=== PATIENT | female | born 1990 | race Hispanic/Latino ===

== ENCOUNTER 2018-09-05 13:18 | Observation (INO) | payer MEDICAID ==
[2018-09-05] MEDS ORDERED: ONDANSETRON ODT 4 MG TAB ONE (13:29)
[2018-09-05 14:04] LABS: BASOPHILS % (AUTO) 0.3 % (0.0-5.0); EOSINOPHILS % (AUTO) 0.6 % (0.0-8.0); HEMATOCRIT 33.2 % (36-48); LYMPHOCYTES % (AUTO) 12.6 % (21.0-51.0); MEAN CORPUSCULAR HEMOGLOBIN 31.8 pg (27.0-33.0); MEAN CORPUSCULAR HGB CONC 35.1 g/dL (32.0-36.0); MEAN CORPUSCULAR VOLUME 90.7 fL (79-99); MONOCYTES % (AUTO) 8.3 % (3.0-13.0); NEUTROPHILS % (AUTO) 78.2 % (40.0-77.0); PLATELET COUNT (AUTO) 172 K/uL (130-400); RED BLOOD CELL COUNT(AUTO) 3.66 MIL/uL (4.00-5.50); RED CELL DISTRIBUTION WIDTH 13.1 % (11.0-15.5); WHITE BLOOD COUNT (AUTO) 9.9 K/uL (4.8-10.8)
[2018-09-05 14:13] LABS: CREATININE 0.6 mg/dL (0.5-1.5); POTASSIUM 3.5 mmol/L (3.5-5.1)
[2018-09-05 14:17] LABS: ALBUMIN 2.6 g/dL (3.5-5.0); BILIRUBIN,TOTAL 0.3 mg/dL (0.2-1.0); TOTAL PROTEIN, SERUM 6.6 g/dL (6.0-8.3)
[2018-09-05 15:47] LABS: APPEARANCE,URINE Clear (CLEAR); BILIRUBIN,URINE Negative (NEGATIVE); COLOR,URINE Yellow (YELLOW); GLUCOSE, URINE (UA) Negative (NEGATIVE); KETONES,URINE Negative (NEGATIVE); LEUKOCYTE ESTERASE ,URINE Small (NEGATIVE); NITRATE,URINE Negative (NEGATIVE); OCCULT BLOOD,URINE Negative (NEGATIVE); PROTEIN,URINE Negative (NEGATIVE); UROBILINOGEN,URINE 0.2 mg/dL (0.2-1.0)
[2018-09-05 15:54] LABS: AMPHET/METH SCREEN,URINE NEGATIVE (NEGATIVE); BARBITURATE SCREEN, URINE NEGATIVE (NEGATIVE); BENZODIAZEPINES SCREEN,URINE NEGATIVE (NEGATIVE); CANNABINOID SCREEN,URINE NEGATIVE (NEGATIVE); COCAINE SCREEN,URINE NEGATIVE (NEGATIVE); OPIATE SCREEN,URINE NEGATIVE (NEGATIVE); PHENCYCLIDINE SCREEN,URINE NEGATIVE (NEGATIVE)
[2018-09-05 15:59] LABS: BACTERIA,URINE Few /HPF (None Seen); RBC,URINE None Seen /HPF (0-1); WBC,URINE 0-1 /HPF (0-1)
[2018-09-05 16:00] LABS: TRANSITIONAL EPI CELLS,URINE Few /HPF (None Seen)
== END 2018-09-05 16:45 | disposition home or self-care (01) ==
LOC: EDH 13:18 → LDH 13:19
PROVIDERS: ADMIT Obstetrics & Gynecology; ATTEND Obstetrics & Gynecology
DX: O21.2 Late vomiting of pregnancy (principal); O26.892 Other specified pregnancy related conditions, second trimester; R10.13 Epigastric pain; Z3A.24 24 weeks gestation of pregnancy; R19.7 Diarrhea, unspecified; Z79.899 Other long term (current) drug therapy
CPT/HCPCS: 36415; 80053; 80305; 81001; 85025; 99284; G0378 ×3

== ENCOUNTER 2020-09-30 03:37 | Inpatient (IN) | payer MEDICAID, OTHER ==
[~2020-09-30] VITALS: Ht 160 cm; Wt 105.2 kg
[~2020-09-30 03:37] MED LIST: DOXYCYCLINE 100MG+NS 250ML 250 ML IV SCH
[2020-09-30] MEDS ORDERED: SODIUM CHLORIDE 0.9% 1000ML 1,000 ML IV ONE (04:13)
[2020-09-30 04:23] LABS: BASOPHILS % (AUTO) 0.1 % (0.0-5.0); HEMATOCRIT 39.3 % (36-48); LYMPHOCYTES % (AUTO) 6.9 % (21.0-51.0); MEAN CORPUSCULAR HEMOGLOBIN 30.1 pg (27.0-33.0); MEAN CORPUSCULAR HGB CONC 34.4 g/dL (32.0-36.0); MEAN CORPUSCULAR VOLUME 87.5 fL (79-99); MONOCYTES % (AUTO) 6.3 % (3.0-13.0); NEUTROPHILS % (AUTO) 85.5 % (40.0-77.0); PLATELET COUNT (AUTO) 207 K/uL (130-400); RED BLOOD CELL COUNT(AUTO) 4.49 MIL/uL (4.00-5.50); WHITE BLOOD COUNT (AUTO) 16.9 K/uL (4.8-10.8)
[2020-09-30 04:33] LABS: INR 1.02 (0.85-1.15); PROTHROMBIN TIME 10.9 SEC (9.6-11.6)
[2020-09-30 04:35] LABS: PARTIAL THROMBOPLASTIN TIME 24.5 SEC (26.3-35.5)
[2020-09-30] MEDS ORDERED: ACETAMINOPHEN ELIXIR 325 MG/10.15ML UDCUP ONE (04:35)
[2020-09-30 04:36] LABS: CREATININE 0.8 mg/dL (0.5-1.5); POTASSIUM 3.9 mmol/L (3.5-5.1)
[2020-09-30] MEDS ORDERED: CEFTRIAXONE SODIUM 1 GM ONE (04:36)
[2020-09-30] MEDS ORDERED: DEXAMETHASONE SOD PHOSPHATE 10MG/ML 1ML VIAL ONE (04:36)
[2020-09-30] MEDS ORDERED: AZITHROMYCIN 250 MG TABLET PO ONE (04:36)
[2020-09-30 04:41] LABS: ALBUMIN 2.8 g/dL (3.5-5.0); BILIRUBIN,TOTAL 0.4 mg/dL (0.2-1.0); CRP QUANTITATIVE 167.8 mg/L (0.00-9.0); TOTAL PROTEIN, SERUM 7.8 g/dL (6.0-8.3)
[2020-09-30] MEDS ORDERED: ONDANSETRON HCL 4 MG/2 ML VIAL ONE ×2 (04:48→15:17)
[2020-09-30 04:52] LABS: FERRITIN 424 ng/mL (15-150)
[2020-09-30] MEDS ORDERED: PHARMACY COMMUNICATION MISC SCH (05:30)
[2020-09-30] MEDS ORDERED: DOXYCYCLINE 100MG+NS 250ML IV SCH (05:30)
[2020-09-30] MEDS ORDERED: ERGOCALCIFEROL (VITAMIN D2) 50,000 UNIT CAPSULE PO ONE (05:30)
[2020-09-30] MEDS ORDERED: ONDANSETRON HCL 4 MG/2 ML VIAL IV PRN (05:30)
[2020-09-30] MEDS: DEXAMETHASONE SOD PHOSPHATE 4 MG/ML 1ML VIAL IVP SCH (05:30)
[2020-09-30] MEDS ORDERED: ACETAMINOPHEN 325 MG TAB PO PRN ×2 (05:30)
[2020-09-30] MEDS ORDERED: ERGOCALCIFEROL (VITAMIN D2) 50,000 UNIT CAPSULE ONE (05:51)
[2020-09-30] MEDS ORDERED: DOXYCYCLINE 100MG+NS 250ML 250 ML IV ONE ×2 (05:51→20:25)
[2020-09-30] MEDS: DOXYCYCLINE 100MG+NS 250ML IV SCH ×2 (06:00→18:00)
[2020-09-30] MEDS ORDERED: ACETYLCYSTEINE 600 MG CAPSULE ONE ×3 (08:57→20:25)
[2020-09-30] MEDS ORDERED: ASCORBIC ACID 500 MG TAB ONE (08:57)
[2020-09-30] MEDS ORDERED: ZINC SULFATE 220 CAPSULE ONE (08:57)
[2020-09-30] MEDS: ACETYLCYSTEINE 600 MG CAPSULE PO SCH ×2 (09:00→21:00)
[2020-09-30] MEDS: FAMOTIDINE/PF 20 MG/2 ML VIAL IV SCH ×2 (09:00→21:00)
[2020-09-30] MEDS: ZINC SULFATE 220 CAPSULE PO SCH (09:00)
[2020-09-30] MEDS: ASCORBIC ACID 500 MG TAB PO SCH (09:00)
[2020-09-30] MEDS ORDERED: GUAIFENESIN-DM 200/20 MG 10 ML ONE ×2 (15:17→21:38)
[2020-09-30] MEDS ORDERED: REMDESIVIR (EUA) 520 200 MG in SODIUM CHLORIDE 0.9% 250 ML IV ONE (16:00)
[2020-09-30] MEDS ORDERED: COMPOUND IV REFRIGERATED 1 EACH IVSOLN MISC PRN (16:00)
[2020-09-30] MEDS: CEFTRIAXONE SODIUM 1 GM IVP SCH (17:00)
[2020-09-30] MEDS ORDERED: ALBUTEROL INHALER 90MCG/INH IH ONE (20:25)
[2020-09-30] MEDS ORDERED: FAMOTIDINE/PF 20 MG/2 ML VIAL IV ONE (20:26)
[2020-10-01] MEDS ORDERED: ONDANSETRON HCL 4 MG/2 ML VIAL ONE ×2 (03:06→20:04)
[2020-10-01] MEDS ORDERED: DEXAMETHASONE SOD PHOSPHATE 10MG/ML 1ML VIAL ONE ×2 (04:18→21:12)
[2020-10-01] MEDS ORDERED: CEFTRIAXONE SODIUM 1 GM ONE ×3 (04:18→21:13)
[2020-10-01] MEDS ORDERED: GUAIFENESIN-DM 200/20 MG 10 ML ONE ×4 (04:32→20:05)
[2020-10-01] MEDS: CEFTRIAXONE SODIUM 1 GM IVP SCH ×2 (05:00→17:00)
[2020-10-01 05:19] LABS: BASOPHILS % (AUTO) 0.1 % (0.0-5.0); EOSINOPHILS % (AUTO) 0.1 % (0.0-8.0); HEMATOCRIT 37.5 % (36-48); LYMPHOCYTES % (AUTO) 13.3 % (21.0-51.0); MEAN CORPUSCULAR HGB CONC 33.6 g/dL (32.0-36.0); MEAN CORPUSCULAR VOLUME 89.3 fL (79-99); NEUTROPHILS % (AUTO) 78.5 % (40.0-77.0); PLATELET COUNT (AUTO) 221 K/uL (130-400); RED CELL DISTRIBUTION WIDTH 13.3 % (11.0-15.5); WHITE BLOOD COUNT (AUTO) 13.3 K/uL (4.8-10.8)
[2020-10-01] MEDS: DEXAMETHASONE SOD PHOSPHATE 4 MG/ML 1ML VIAL IVP SCH (05:30)
[2020-10-01] MEDS: DOXYCYCLINE 100MG+NS 250ML IV SCH ×2 (06:00→18:00)
[2020-10-01] MEDS ORDERED: PHARMACY COMMUNICATION MISC SCH (06:00)
[2020-10-01 06:02] LABS: ALBUMIN 2.5 g/dL (3.5-5.0); BILIRUBIN,TOTAL 0.6 mg/dL (0.2-1.0); CREATININE 0.7 mg/dL (0.5-1.5); CRP QUANTITATIVE 136.6 mg/L (0.00-9.0); POTASSIUM 3.7 mmol/L (3.5-5.1); TOTAL PROTEIN, SERUM 7.1 g/dL (6.0-8.3)
[2020-10-01] MEDS ORDERED: ZINC SULFATE 220 CAPSULE ONE (07:55)
[2020-10-01] MEDS ORDERED: ACETYLCYSTEINE 600 MG CAPSULE ONE ×2 (07:55→21:12)
[2020-10-01] MEDS ORDERED: ASCORBIC ACID 500 MG TAB ONE (07:55)
[2020-10-01] MEDS ORDERED: FAMOTIDINE/PF 20 MG/2 ML VIAL IV ONE ×2 (07:56→21:14)
[2020-10-01] MEDS: FAMOTIDINE/PF 20 MG/2 ML VIAL IV SCH ×2 (09:00→21:00)
[2020-10-01] MEDS: ZINC SULFATE 220 CAPSULE PO SCH (09:00)
[2020-10-01] MEDS: ASCORBIC ACID 500 MG TAB PO SCH (09:00)
[2020-10-01] MEDS: ACETYLCYSTEINE 600 MG CAPSULE PO SCH ×2 (09:00→21:00)
[2020-10-01] MEDS ORDERED: ENOXAPARIN SODIUM 40 MG/0.4 ML SYRINGE SQ SCH (10:00)
[2020-10-01] MEDS ORDERED: ENOXAPARIN SODIUM 40 MG/0.4 ML SYRINGE SQ ONE (10:54)
[2020-10-01] MEDS: REMDESIVIR (EUA) 520 100 MG in SODIUM CHLORIDE 0.9% 250 ML IV SCH (16:00)
[2020-10-01] MEDS ORDERED: DOXYCYCLINE 100MG+NS 250ML 250 ML IV ONE ×2 (17:14→21:12)
[2020-10-01 23:58] VITALS: BP 105/63
[2020-10-02] MEDS ORDERED: ZINC50TA64 PO (00:07)
[2020-10-02] MEDS ORDERED: ASCO100T12 PO (00:07)
[2020-10-02] MEDS: GUAIFENESIN-DM 200/20 MG 10 ML PO PRN ×2 (03:48→21:18)
[2020-10-02] MEDS: CEFTRIAXONE SODIUM 1 GM IVP SCH ×2 (04:13→16:32)
[2020-10-02 04:15] VITALS: BP 112/63
[2020-10-02] MEDS: DEXAMETHASONE SOD PHOSPHATE 4 MG/ML 1ML VIAL IVP SCH (05:24)
[2020-10-02 06:46] LABS: BASOPHILS % (AUTO) 0.2 % (0.0-5.0); HEMATOCRIT 39.3 % (36-48); LYMPHOCYTES % (AUTO) 11.4 % (21.0-51.0); MEAN CORPUSCULAR HEMOGLOBIN 30.2 pg (27.0-33.0); MEAN CORPUSCULAR HGB CONC 34.1 g/dL (32.0-36.0); MEAN CORPUSCULAR VOLUME 88.7 fL (79-99); MONOCYTES % (AUTO) 5.7 % (3.0-13.0); NEUTROPHILS % (AUTO) 81.1 % (40.0-77.0); PLATELET COUNT (AUTO) 264 K/uL (130-400); RED BLOOD CELL COUNT(AUTO) 4.43 MIL/uL (4.00-5.50); RED CELL DISTRIBUTION WIDTH 12.9 % (11.0-15.5); WHITE BLOOD COUNT (AUTO) 8.2 K/uL (4.8-10.8)
[2020-10-02] MEDS ORDERED: SODIUM CHLORIDE 0.9% 500ML 500 ML IV ONE (06:48)
[2020-10-02] MEDS: DOXYCYCLINE 100MG+NS 250ML 250 ML IV SCH ×2 (07:04→18:48)
[2020-10-02 07:21] LABS: ALBUMIN 2.6 g/dL (3.5-5.0); BILIRUBIN,TOTAL 0.4 mg/dL (0.2-1.0); CREATININE 0.7 mg/dL (0.5-1.5); CRP QUANTITATIVE 70.6 mg/L (0.00-9.0); POTASSIUM 4.1 mmol/L (3.5-5.1); TOTAL PROTEIN, SERUM 7.5 g/dL (6.0-8.3)
[2020-10-02] MEDS: ACETYLCYSTEINE 600 MG CAPSULE PO SCH ×2 (09:31→20:06)
[2020-10-02] MEDS: ASCORBIC ACID 500 MG TAB PO SCH (09:32)
[2020-10-02] MEDS: ZINC SULFATE 220 CAPSULE PO SCH (09:32)
[2020-10-02] MEDS: FAMOTIDINE/PF 20 MG/2 ML VIAL IV SCH ×2 (09:32→20:06)
[2020-10-02 10:29] VITALS: BP 119/72
[2020-10-02 13:11] VITALS: BP 115/67
[2020-10-02] MEDS: REMDESIVIR (EUA) 520 100 MG in SODIUM CHLORIDE 0.9% 250 ML IV SCH (16:32)
[2020-10-02 18:18] VITALS: BP 114/70
[2020-10-02 19:55] VITALS: BP 118/69
[2020-10-02 23:39] VITALS: BP 107/55
[2020-10-03] MEDS: GUAIFENESIN-DM 200/20 MG 10 ML PO PRN ×6 (01:29→23:18)
[2020-10-03 03:50] VITALS: BP 100/58
[2020-10-03] MEDS: DEXAMETHASONE SOD PHOSPHATE 4 MG/ML 1ML VIAL IVP SCH (04:47)
[2020-10-03] MEDS: CEFTRIAXONE SODIUM 1 GM IVP SCH ×2 (04:47→16:15)
[2020-10-03] MEDS: DOXYCYCLINE 100MG+NS 250ML 250 ML IV SCH ×2 (06:17→18:20)
[2020-10-03 06:26] LABS: BASOPHILS % (AUTO) 0.3 % (0.0-5.0); EOSINOPHILS % (AUTO) 0.5 % (0.0-8.0); HEMATOCRIT 40.7 % (36-48); LYMPHOCYTES % (AUTO) 18.1 % (21.0-51.0); MEAN CORPUSCULAR HEMOGLOBIN 30.1 pg (27.0-33.0); MEAN CORPUSCULAR HGB CONC 33.9 g/dL (32.0-36.0); MEAN CORPUSCULAR VOLUME 88.9 fL (79-99); MONOCYTES % (AUTO) 9.1 % (3.0-13.0); NEUTROPHILS % (AUTO) 69.7 % (40.0-77.0); PLATELET COUNT (AUTO) 295 K/uL (130-400); RED BLOOD CELL COUNT(AUTO) 4.58 MIL/uL (4.00-5.50); RED CELL DISTRIBUTION WIDTH 12.8 % (11.0-15.5); WHITE BLOOD COUNT (AUTO) 7.8 K/uL (4.8-10.8)
[2020-10-03 06:58] LABS: ALBUMIN 2.5 g/dL (3.5-5.0); BILIRUBIN,TOTAL 0.3 mg/dL (0.2-1.0); CREATININE 0.7 mg/dL (0.5-1.5); CRP QUANTITATIVE 32.8 mg/L (0.00-9.0); POTASSIUM 3.8 mmol/L (3.5-5.1)
[2020-10-03 07:13] VITALS: BP 99/62
[2020-10-03 08:00] VITALS: BP 99/62
[2020-10-03] MEDS: ACETYLCYSTEINE 600 MG CAPSULE PO SCH ×2 (09:08→20:13)
[2020-10-03] MEDS: ASCORBIC ACID 500 MG TAB PO SCH (09:08)
[2020-10-03] MEDS: FAMOTIDINE/PF 20 MG/2 ML VIAL IV SCH ×2 (09:08→20:12)
[2020-10-03] MEDS: ZINC SULFATE 220 CAPSULE PO SCH (09:08)
[2020-10-03 11:07] VITALS: BP 95/48
[2020-10-03 15:21] VITALS: BP 99/66
[2020-10-03] MEDS: REMDESIVIR (EUA) 520 100 MG in SODIUM CHLORIDE 0.9% 250 ML IV SCH (16:15)
[2020-10-03 20:00] VITALS: BP 100/56
[2020-10-04 01:12] VITALS: BP 88/56
[2020-10-04 04:00] VITALS: BP 94/61
[2020-10-04] MEDS: GUAIFENESIN-DM 200/20 MG 10 ML PO PRN ×4 (05:21→20:35)
[2020-10-04] MEDS: CEFTRIAXONE SODIUM 1 GM IVP SCH ×2 (05:21→16:24)
[2020-10-04 05:58] LABS: BASOPHILS % (AUTO) 0.5 % (0.0-5.0); EOSINOPHILS % (AUTO) 1.9 % (0.0-8.0); HEMATOCRIT 39.3 % (36-48); LYMPHOCYTES % (AUTO) 29.5 % (21.0-51.0); MEAN CORPUSCULAR HEMOGLOBIN 30.4 pg (27.0-33.0); MEAN CORPUSCULAR HGB CONC 34.4 g/dL (32.0-36.0); MEAN CORPUSCULAR VOLUME 88.5 fL (79-99); MONOCYTES % (AUTO) 10.7 % (3.0-13.0); NEUTROPHILS % (AUTO) 53.7 % (40.0-77.0); PLATELET COUNT (AUTO) 305 K/uL (130-400); RED BLOOD CELL COUNT(AUTO) 4.44 MIL/uL (4.00-5.50); RED CELL DISTRIBUTION WIDTH 12.8 % (11.0-15.5)
[2020-10-04 06:26] LABS: ALANINE AMINOTRANSFERASE 89 U/L (12-78); ALBUMIN 2.6 g/dL (3.5-5.0); ASPARTATE AMINOTRANSFERASE 18 U/L (10-37); BILIRUBIN,DIRECT 0.1 mg/dL (0.0-0.3); BILIRUBIN,TOTAL 0.4 mg/dL (0.2-1.0); CARBON DIOXIDE 23 mmol/L (21-32); CHLORIDE 101 mmol/L (101-111); CREATININE 0.8 mg/dL (0.5-1.5); GLOMERULAR FILTR. RATE CALC 90 mL/min (>60); GLUCOSE,RANDOM 85 mg/dL (70-105); POTASSIUM 3.4 mmol/L (3.5-5.1); SODIUM SERUM 136 mmol/L (136-145); TOTAL PROTEIN, SERUM 6.9 g/dL (6.0-8.3); UREA NITROGEN, BLOOD 17 mg/dL (7-18)
[2020-10-04] MEDS ORDERED: ASPI-1005 PO (07:06)
[2020-10-04] MEDS ORDERED: DEXA6TAB PO (07:06)
[2020-10-04] MEDS: DOXYCYCLINE 100MG+NS 250ML 250 ML IV SCH (07:17)
[2020-10-04 08:30] VITALS: BP 99/52
[2020-10-04] MEDS ORDERED: POTASSIUM CHLORIDE 20 MEQ ERTAB PO SCH (08:30)
[2020-10-04] MEDS ORDERED: DEXAMETHASONE 4 MG TAB PO SCH (09:00)
[2020-10-04] MEDS ORDERED: POTASSIUM CHLORIDE 20 MEQ ERTAB PO ONE (09:04)
[2020-10-04] MEDS: ACETYLCYSTEINE 600 MG CAPSULE PO SCH ×2 (09:13→20:35)
[2020-10-04] MEDS: FAMOTIDINE/PF 20 MG/2 ML VIAL IV SCH ×2 (09:13→20:35)
[2020-10-04] MEDS: ASCORBIC ACID 500 MG TAB PO SCH (09:13)
[2020-10-04] MEDS: ZINC SULFATE 220 CAPSULE PO SCH (09:14)
[2020-10-04 12:37] VITALS: BP 102/55
[2020-10-04] MEDS: REMDESIVIR (EUA) 520 100 MG in SODIUM CHLORIDE 0.9% 250 ML IV SCH (16:03)
[2020-10-04 16:30] VITALS: BP 109/67
[2020-10-04 20:00] VITALS: BP 112/63
== END 2020-10-04 21:45 | disposition home or self-care (01) | DRG 177 ==
LOC: EDH 03:37 → EDHIP 03:38 → 4BH 10-01 23:00
PROVIDERS: ADMIT Hospitalist; ATTEND Hospitalist
PROC: XW13325 Transfusion of Convalescent Plasma (Nonautologous) into Peripheral Vein, Percutaneous Approach, New Technology Group 5 (ICD-10-PCS; principal; 2020-10-01)
PROC: XW033E5 Introduction of Remdesivir Anti-infective into Peripheral Vein, Percutaneous Approach, New Technology Group 5 (ICD-10-PCS; 2020-10-01)
DX: U07.1 COVID-19 (principal); A41.9 Sepsis, unspecified organism; J96.01 Acute respiratory failure with hypoxia; J12.82 Pneumonia due to coronavirus disease 2019; E87.1 Hypo-osmolality and hyponatremia; E44.0 Moderate protein-calorie malnutrition; Z68.41 Body mass index [BMI] 40.0-44.9, adult; E66.01 Morbid (severe) obesity due to excess calories
CPT/HCPCS: 36415; 71045; 80048; 80053; 80076; 82728; 83605; 83615; 84145; 84484; 85025; 85378; 85610; 85730; 86140; 86738; 86850; 86900; 86901; 86927; 87040; 87426; 87804; 93005; G0378; J0696; J1100; J1650; J2405; J3490; J7030; J7040; J7050; J8540; U0003

== ENCOUNTER 2020-10-19 09:17 | Emergency (ER) | payer OTHER, SELFPAY ==
[~2020-10-19 09:17] MED LIST changes: +ASCO100T12 PO; +ASPI-1005 PO; +DEXA6TAB PO; -DOXYCYCLINE 100MG+NS 250ML 250 ML IV SCH; +ZINC50TA64 PO
[2020-10-19 10:29] LABS: BASOPHILS % (AUTO) 0.5 % (0.0-5.0); EOSINOPHILS % (AUTO) 2.2 % (0.0-8.0); LYMPHOCYTES % (AUTO) 23.3 % (21.0-51.0); MEAN CORPUSCULAR HEMOGLOBIN 31.3 pg (27.0-33.0); MEAN CORPUSCULAR HGB CONC 34.6 g/dL (32.0-36.0); MEAN CORPUSCULAR VOLUME 90.5 fL (79-99); MONOCYTES % (AUTO) 8.6 % (3.0-13.0); PLATELET COUNT (AUTO) 142 K/uL (130-400); RED BLOOD CELL COUNT(AUTO) 4.31 MIL/uL (4.00-5.50); RED CELL DISTRIBUTION WIDTH 13.5 % (11.0-15.5); WHITE BLOOD COUNT (AUTO) 7.6 K/uL (4.8-10.8)
[2020-10-19 10:36] LABS: CREATININE 0.7 mg/dL (0.5-1.5); POTASSIUM 3.7 mmol/L (3.5-5.1)
[2020-10-19 10:40] LABS: ALBUMIN 3.2 g/dL (3.5-5.0); BILIRUBIN,TOTAL 0.4 mg/dL (0.2-1.0); TOTAL PROTEIN, SERUM 7.6 g/dL (6.0-8.3)
== END 2020-10-19 11:27 | disposition home or self-care (01) ==
LOC: EDH 09:17
DX: R11.2 Nausea with vomiting, unspecified (principal); Z86.16 Personal history of COVID-19; Z87.891 Personal history of nicotine dependence
CPT/HCPCS: 36415; 80053; 82150; 83690; 85025

== ENCOUNTER 2022-09-15 09:29 | Emergency (ER) | payer OTHER ==
[~2022-09-15] VITALS: Ht 160 cm; Wt 111.1 kg
[2022-09-15 09:33] VITALS: BP 130/76
[2022-09-15 09:56] LABS: BASOPHILS % (AUTO) 0.8 % (0.0-5.0); HEMATOCRIT 38.3 % (36-48); LYMPHOCYTES % (AUTO) 27.1 % (21.0-51.0); MEAN CORPUSCULAR HEMOGLOBIN 29.6 pg (27.0-33.0); MEAN CORPUSCULAR HGB CONC 34.2 g/dL (32.0-36.0); MEAN CORPUSCULAR VOLUME 86.7 fL (79-99); MONOCYTES % (AUTO) 6.4 % (3.0-13.0); NEUTROPHILS % (AUTO) 63.3 % (40.0-77.0); PLATELET COUNT (AUTO) 252 K/uL (130-400); RED BLOOD CELL COUNT(AUTO) 4.42 MIL/uL (4.00-5.50); RED CELL DISTRIBUTION WIDTH 12.9 % (11.0-15.5); WHITE BLOOD COUNT (AUTO) 7.5 K/uL (4.8-10.8)
[2022-09-15 10:06] LABS: APPEARANCE,URINE CLOUDY (CLEAR); BILIRUBIN,URINE NEGATIVE (NEGATIVE); COLOR,URINE LIGHT-ORANGE (YELLOW); GLUCOSE, URINE (UA) NEGATIVE (NEGATIVE); KETONES,URINE NEGATIVE (NEGATIVE); LEUKOCYTE ESTERASE ,URINE 75 Leu/uL (NEGATIVE); NITRATE,URINE NEGATIVE (NEGATIVE); OCCULT BLOOD,URINE LARGE (NEGATIVE); PROTEIN,URINE 30 mg/dL (NEGATIVE); UROBILINOGEN,URINE 0.2 mg/dL (0.2-1.0)
[2022-09-15 10:12] LABS: CREATININE 0.8 mg/dL (0.5-1.5); POTASSIUM 3.6 mmol/L (3.5-5.1)
[2022-09-15 10:17] LABS: ALBUMIN 3.9 g/dL (3.5-5.0); TOTAL PROTEIN, SERUM 8.1 g/dL (6.0-8.3)
[2022-09-15 10:24] LABS: BACTERIA,URINE FEW /HPF (None Seen); MUCUS,URINE RARE LPF (None Seen); RBC,URINE TNTC /HPF (0-1)
[2022-09-15] MEDS ORDERED: MACR100 PO (11:26)
== END 2022-09-15 11:32 | disposition home or self-care (01) ==
LOC: EDH 09:29
DX: N39.0 Urinary tract infection, site not specified (principal); N92.1 Excessive and frequent menstruation with irregular cycle; N93.8 Other specified abnormal uterine and vaginal bleeding; Z79.52 Long term (current) use of systemic steroids; Z79.82 Long term (current) use of aspirin; Z90.79 Acquired absence of other genital organ(s)
CPT/HCPCS: 36415; 80053; 81001; 81025; 85025; 86850; 86900; 86901; 87088